=== PATIENT | female | born 2000 | race Caucasian/White ===

== ENCOUNTER 2023-07-17 13:01 | Emergency (ER) | payer BC ==
[~2023-07-17] VITALS: Ht 167.6 cm; Wt 81.6 kg
[2023-07-17 14:10] LABS: STREP A SCREEN POSITIVE (Neg)
[2023-07-17] MEDS ORDERED: PENI500T2 PO (14:22)
[2023-07-17 14:29] VITALS: BP 110/68; PULSE 96; RESP 18; TEMP 98.6; O2SAT 98
== END 2023-07-17 14:30 | disposition home or self-care (01) ==
LOC: ER 13:02
DX: J02.9 Acute pharyngitis, unspecified (principal); Z20.822 Contact with and (suspected) exposure to COVID-19
CPT/HCPCS: 36415; 87811; 87880; 99283